=== PATIENT | female | born 1970 | race Caucasian/White ===

== ENCOUNTER 2017-11-22 11:23 | Observation (INO) ==
[2017-11-22] MEDS ORDERED: Ipratropium/Albuterol Neb 3 ML IH ONE ×2 (11:59→12:02)
--- NOTE | 2017-11-22 11:59 | Emergency Department Note ---
Disposition Clinical Impression: Community acquired pneumonia Disposition: Admitted As Inpatient Condition: Fair Time of Disposition: 15:38 General Adult HPI - General Chief complaint: ED Shortness of Breath/Dyspnea Stated complaint: flu symptoms, difficult breathing Time Seen by Provider: 11/22/17 11:50 Source: patient, EMS Limitations: no limitations Nursing Notes Reviewed: Yes Vital Signs Reviewed: Yes - History of Present Illness HPI Narrative: Since last week Ms. Christensen has had muscle aches headache ear pain sore throat productive cough and progressive shortness of breath. No history of asthma. She does not smoke. She called the squad today because of the above symptoms received a DuoNeb en route and reports feeling somewhat better. Fever 102 yesterday. She tried some ibuprofen yesterday but it "did not work well. Sudden onset one week ago. Dizzy lightheaded very fatigued. She is not sure of the last time she urinated because she feels too weak to eat. No nausea vomiting or diarrhea. No rashes. On direct questioning no vision changes but her eyes do hurt to move back and forth in her head. She does have some chest pain on the right side but only on deep inspiration and when coughing. Onset (ago): week(s) Pain Scale: 9 - Related Data Home Medications Medication Instructions Recorded Confirmed Gabapentin [Neurontin] 800 mg PO QID 06/13/15 06/22/16 FLUoxetine HCl [Prozac] 40 mg PO DAILY 12/12/15 06/22/16 Allergies Allergy/AdvReac Type Severity Reaction Status Date / Time influenza virus vaccine ts Allergy Hives Verified 12/12/15 23:17 [id number] (36 mos up) [From Fluarix [id number] (PF)] acetaminophen [From Percocet] AdvReac Nausea Verified 12/12/15 23:17 Cyclobenzaprine AdvReac Rash Verified 12/12/15 23:17 [From Flexeril] Oxycodone [From Percocet] AdvReac Nausea Verified 12/12/15 23:17 Constitutional: Reports: fever, chills Eyes: Reports: eye pain ENT ED: Reports: ear pain, congestion Cardiovascular: Reports: chest pain, dyspnea on exertion Respiratory: Reports: cough, dyspnea, sputum production Gastrointestinal: Denies: nausea, vomiting, diarrhea Musculoskeletal: Reports: myalgia Integumentary: Denies: rash Neurological: Reports: headache Endocrine: Reports: fatigue Past Medical History - Past Medical History Medical history: Reports: arthritis, migraine, other Surgical history: Reports: cholecystectomy, other (Tympanoplasty, vocal cord surgery, lumbar laminectomy in 2014) Psychiatric history: Reports: anxiety, depression, panic disorder, PTSD 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 Absent: scleral icterus, conjunctival injection - ENT ENT exam: normal oropharynx, mucous membranes dry, TM's normal bilaterally, normal external ear exam - Neck Neck exam: Present: normal inspection, full ROM. Absent: meningismus (Negative Kernig and negative Brudzinski's signs) - Chest Chest inspection: Present: normal inspection, symmetric chest wall rise, tenderness (Positive reproducible pain to palpation right side of chest) - Respiratory Respiratory exam: Present: wheezes (Bilateral symmetric end expiratory wheezes with fair air exchange.) - Cardiovascular Cardiovascular exam: Present: normal rhythm, tachycardia, normal heart sounds. Absent: systolic murmur, diastolic murmur - Abdominal Exam Abdominal exam: Present: soft, Non-Tender - Extremities Exam Extremities exam: Present: normal inspection. Absent: pedal edema, calf tenderness (No calf Cord erythema or swelling) - Neurological Exam Neurological exam: Present: alert - Psychiatric Psychiatric exam: Present: normal affect, normal mood - Skin Skin exam: Present: warm, dry. Absent: rash Course Vital Signs Temperature 100.8 F H 11/22/17 11:40 Pulse Rate 133 11/22/17 11:40 Respiratory Rate 20 11/22/17 11:40 Blood Pressure 136/81 11/22/17 11:40 O2 Sat by Pulse Oximetry 98 11/22/17 11:40 Temperature 97.6 F 11/22/17 16:39 Pulse Rate 109 11/22/17 16:39 Respiratory Rate 18 11/22/17 16:39 Blood Pressure 116/84 11/22/17 16:39 O2 Sat by Pulse Oximetry 96 11/22/17 16:39 Oxygen Delivery Oxygen Delivery Nasal Cannula Medical Decision Making - MDM Narrative Medical decision making narrative: Shortness of breath. Clinically sounds like influenza however rapid testing negative. She does have some clinical findings for right-sided community- acquired pneumonia. She was given IV Zithromax and Rocephin here in the emergency department. After additional DuoNeb treatments were given she reported subjective relief. She has never frankly hypoxic but did have subjective shortness of breath with O2 sats on room air 90-93%. She was given 2 L of oxygen for this. She did require 2 L of IV fluid before she produced a urine. Her tachycardia did improve from the 130s down to 109 at the time of her second EKG which showed some resolution of the initial ST depressions which is probably from some demand ischemia secondary to tachycardia. She has no chest pain consistent with a cardiac etiology. It would be prudent to admit her here to the hospital for continued nebulized treatments and IV hydration. I spoke with the covering hospitalist and presented the case. He accepted admission. She was transferred to the floor in improved condition. - Lab Data Lab results reviewed: Yes I reviewed the patient's lab results. Result diagrams: 11/22/17 12:40 11/22/17 12:40 Lab Results 11/22/17 11/22/17 11/22/17 Range/Units 12:40 12:40 12:40 WBC 22.7 H (4.3-11.1) K/mcL RBC 4.83 (3.82-4.97) M/mcL Hgb 14.1 (11.5-15.4) g/dL Hct 41.5 (35.3-44.9) % MCV 85.9 (83.0-100.0) fL MCH 29.2 (28.0-33.3) pg MCHC 34.0 (31.6-35.5) g/dL RDW 13.0 (11.5-14.5) % Plt Count 332 (140-400) K/mcL MPV 9.8 (9.4-12.4) fL Immature Gran % 0.8 (0-4) % Seg Neutrophils % 91.8 % Lymphocytes % 3.6 % Monocytes % 3.6 % Eosinophils % 0.0 % Basophils % 0.2 % Neutrophils # 20.8 H (1.6-8.9) K/mcL Lymphocytes # 0.8 (0.6-4.6) K/mcL Monocytes # 0.8 (0.0-1.3) K/mcL Eosinophils # 0.0 (0.0-0.6) K/mcL Basophils # 0.1 (0.0-0.2) K/mcL Sodium 134 L (136-145) mEq/L Potassium 3.3 L (3.5-5.1) mEq/L Chloride 104 (98-107) mEq/L Carbon Dioxide 21 L (23-29) mEq/L BUN 13 (6-20) mg/dL Creatinine 0.62 (0.60-1.20) mg/dL Est GFR ( Amer) > 60 (> 60) Est GFR (Non-Af Amer) > 60 (> 60) BUN/Creatinine Ratio 21 (6-26) Glucose 143 H (70-105) mg/dL Calculated Osmolality 281 (280-300) Lactic Acid 1.2 (0.5-2.2) mmol/L Calcium 8.6 (8.6-10.3) mg/dL Magnesium (1.6-2.6) mg/dL Total Bilirubin 0.6 (0.3-1.0) mg/dL AST 22 (13-39) Units/L ALT 32 (7-52) Units/L Alkaline Phosphatase 185 H (34-104) Units/L Troponin I (< 0.04) ng/mL B-Natriuretic Peptide (Less than 100) pg/mL Serum Total Protein 6.9 (6.4-8.9) g/dL Albumin 3.9 (3.5-5.7) g/dL Globulin 3.0 (2.4-3.5) g/dL Albumin/Globulin Ratio 1.3 (1.1-2.2) Urine Color (Yellow) Urine Clarity (Clear) Urine pH (5.0-8.0) pH Units Ur Specific [place] (1.010-1.025) Urine Protein (Neg-Trace) mg/dL Urine Glucose (UA) (Normal) mg/dL Urine Ketones (Negative) mg/dL Urine Blood (Negative) Urine Nitrite (Negative) Urine Bilirubin (Negative) Urine Urobilinogen (Normal) mg/dL Ur Leukocyte Esterase (Negative) Urine Microscopic RBC (0-3) per hpf Urine Microscopic WBC (0-3) per hpf Ur Squamous Epith Cells (None-Few) per lpf Ur Transition Epith Cell (None-Few) per hpf Urine Bacteria (None-Few) per hpf Ur Culture Indicated? (NO) Urine Test (Negative) 11/22/17 11/22/17 11/22/17 Range/Units 12:40 12:40 12:40 WBC (4.3-11.1) K/mcL RBC (3.82-4.97) M/mcL Hgb (11.5-15.4) g/dL Hct (35.3-44.9) % MCV (83.0-100.0) fL MCH (28.0-33.3) pg MCHC (31.6-35.5) g/dL RDW (11.5-14.5) % Plt Count (140-400) K/mcL MPV (9.4-12.4) fL Immature Gran % (0-4) % Seg Neutrophils % % Lymphocytes % % Monocytes % % Eosinophils % % Basophils % % Neutrophils # (1.6-8.9) K/mcL Lymphocytes # (0.6-4.6) K/mcL Monocytes # (0.0-1.3) K/mcL Eosinophils # (0.0-0.6) K/mcL Basophils # (0.0-0.2) K/mcL Sodium (136-145) mEq/L Potassium (3.5-5.1) mEq/L Chloride (98-107) mEq/L Carbon Dioxide (23-29) mEq/L BUN (6-20) mg/dL Creatinine (0.60-1.20) mg/dL Est GFR ( Amer) (> 60) Est GFR (Non-Af Amer) (> 60) BUN/Creatinine Ratio (6-26) Glucose (70-105) mg/dL Calculated Osmolality (280-300) Lactic Acid (0.5-2.2) mmol/L Calcium (8.6-10.3) mg/dL Magnesium 1.7 (1.6-2.6) mg/dL Total Bilirubin (0.3-1.0) mg/dL AST (13-39) Units/L ALT (7-52) Units/L Alkaline Phosphatase (34-104) Units/L Troponin I < 0.03 (< 0.04) ng/mL B-Natriuretic Peptide 65 (Less than 100) pg/mL Serum Total Protein (6.4-8.9) g/dL Albumin (3.5-5.7) g/dL Globulin (2.4-3.5) g/dL Albumin/Globulin Ratio (1.1-2.2) Urine Color (Yellow) Urine Clarity (Clear) Urine pH (5.0-8.0) pH Units Ur Specific [place] (1.010-1.025) Urine Protein (Neg-Trace) mg/dL Urine Glucose (UA) (Normal) mg/dL Urine Ketones (Negative) mg/dL Urine Blood (Negative) Urine Nitrite (Negative) Urine Bilirubin (Negative) Urine Urobilinogen (Normal) mg/dL Ur Leukocyte Esterase (Negative) Urine Microscopic RBC (0-3) per hpf Urine Microscopic WBC (0-3) per hpf Ur Squamous Epith Cells (None-Few) per lpf Ur Transition Epith Cell (None-Few) per hpf Urine Bacteria (None-Few) per hpf Ur Culture Indicated? (NO) Urine Test (Negative) 11/22/17 11/22/17 Range/Units 14:57 14:57 WBC (4.3-11.1) K/mcL RBC (3.82-4.97) M/mcL Hgb (11.5-15.4) g/dL Hct (35.3-44.9) % MCV (83.0-100.0) fL MCH (28.0-33.3) pg MCHC (31.6-35.5) g/dL RDW (11.5-14.5) % Plt Count (140-400) K/mcL MPV (9.4-12.4) fL Immature Gran % (0-4) % Seg Neutrophils % % Lymphocytes % % Monocytes % % Eosinophils % % Basophils % % Neutrophils # (1.6-8.9) K/mcL Lymphocytes # (0.6-4.6) K/mcL Monocytes # (0.0-1.3) K/mcL Eosinophils # (0.0-0.6) K/mcL Basophils # (0.0-0.2) K/mcL Sodium (136-145) mEq/L Potassium (3.5-5.1) mEq/L Chloride (98-107) mEq/L Carbon Dioxide (23-29) mEq/L BUN (6-20) mg/dL Creatinine (0.60-1.20) mg/dL Est GFR ( Amer) (> 60) Est GFR (Non-Af Amer) (> 60) BUN/Creatinine Ratio (6-26) Glucose (70-105) mg/dL Calculated Osmolality (280-300) Lactic Acid (0.5-2.2) mmol/L Calcium (8.6-10.3) mg/dL Magnesium (1.6-2.6) mg/dL Total Bilirubin (0.3-1.0) mg/dL AST (13-39) Units/L ALT (7-52) Units/L Alkaline Phosphatase (34-104) Units/L Troponin I (< 0.04) ng/mL B-Natriuretic Peptide (Less than 100) pg/mL Serum Total Protein (6.4-8.9) g/dL Albumin (3.5-5.7) g/dL Globulin (2.4-3.5) g/dL Albumin/Globulin Ratio (1.1-2.2) Urine Color Yellow (Yellow) Urine Clarity Clear (Clear) Urine pH 5.5 (5.0-8.0) pH Units Ur Specific [place] <= 1.005 L (1.010-1.025) Urine Protein Negative (Neg-Trace) mg/dL Urine Glucose (UA) Normal (Normal) mg/dL Urine Ketones 40 H (Negative) mg/dL Urine Blood Small H (Negative) Urine Nitrite Negative (Negative) Urine Bilirubin Negative (Negative) Urine Urobilinogen Normal (Normal) mg/dL Ur Leukocyte Esterase Negative (Negative) Urine Microscopic RBC 0-3 (0-3) per hpf Urine Microscopic WBC 0-3 (0-3) per hpf Ur Squamous Epith Cells Many H (None-Few) per lpf Ur Transition Epith Cell Few (None-Few) per hpf Urine Bacteria Many H (None-Few) per hpf Ur Culture Indicated? NO (NO) Urine Test Negative (Negative) - Radiology Data Radiology results reviewed: Yes I reviewed the patient's radiology results. - EKG Data EKG #1 EKG attestation: Yes I reviewed and interpreted this EKG. EKG results narrative: EKG as interpreted by me sinus tachycardia [address] depressions 1 box lead 1 and 23 aVF and V3 V4 and V5 V6. Incomplete right bundle branch block. Q waves in lead 3. No evidence of hypertrophy. No ST elevations. No T-wave abnormalities. QT 410 ms. October 2015 QT was [address] depressions were present but not quite as deep as today. Other ST depressions are not present on the 2016 study. EKG #2 done at 3: 18 PM. Rate has decreased to 109 beats per minutes. There is still some evidence of very mild ST depressions but they appear to be resolving.
[2017-11-22] MEDS ORDERED: 0.9 % Sodium Chloride 1,000 ML IVC ONE ×2 (12:00→13:54)
[2017-11-22] MEDS ORDERED: Acetaminophen 325 MG TABLET PO ONE (12:07)
[2017-11-22 12:57] LABS: Basophils # 0.1 K/mcL (0.0-0.2); Basophils % 0.2 %; Hematocrit 41.5 % (35.3-44.9); Hemoglobin 14.1 g/dL (11.5-15.4); Immature Granulocytes % 0.8 % (0-4); Lymphocytes # 0.8 K/mcL (0.6-4.6); Lymphocytes % 3.6 %; Mean Corpuscular Hemoglobin 29.2 pg (28.0-33.3); Mean Corpuscular Volume 85.9 fL (83.0-100.0); Mean Platelet Volume 9.8 fL (9.4-12.4); Monocytes # 0.8 K/mcL (0.0-1.3); Monocytes % 3.6 %; Neutrophils # 20.8 K/mcL (1.6-8.9); Platelet Count 332 K/mcL (140-400); Red Blood Count 4.83 M/mcL (3.82-4.97); Segmented Neutrophils % 91.8 %
[2017-11-22 13:13] LABS: Alanine Aminotransferase 32 Units/L (7-52); Albumin 3.9 g/dL (3.5-5.7); Albumin/Globulin Ratio 1.3 (1.1-2.2); Alkaline Phosphatase 185 Units/L (34-104); Aspartate Amino Transferase 22 Units/L (13-39); BUN/Creatinine Ratio 21 (6-26); Bilirubin,Total 0.6 mg/dL (0.3-1.0); Blood Urea Nitrogen 13 mg/dL (6-20); Calcium 8.6 mg/dL (8.6-10.3); Carbon Dioxide 21 mEq/L (23-29); Chloride 104 mEq/L (98-107); Glucose 143 mg/dL (70-105); Osmolality,Calculated 281 (280-300); Potassium 3.3 mEq/L (3.5-5.1); Sodium 134 mEq/L (136-145); Total Protein 6.9 g/dL (6.4-8.9); eGFR For African Americans > 60 (> 60); eGFR For Non-African Americans > 60 (> 60)
[2017-11-22] MEDS ORDERED: Azithromycin 500 MG in D5% in Water 250 ML IVPB ONE (13:18)
[2017-11-22 15:15] LABS: Bilirubin,Urine Negative (Negative); Blood,Urine Small (Negative); Clarity,Urine Clear (Clear); Color,Urine Yellow (Yellow); Glucose,Urine (UA) Normal (Normal); Ketones,Urine 40 mg/dL (Negative); Leukocyte Esterase,Urine Negative (Negative); Nitrite,Urine Negative (Negative); PH,Urine 5.5 pH Units (5.0-8.0); Protein,Urine Negative (Neg-Trace); Specific Gravity,Urine <= 1.005 (1.010-1.025); Urobilinogen,Urine Normal (Normal)
[2017-11-22 15:23] LABS: Bacteria,Urine Many per hpf (None-Few); RBC,Urine 0-3 per hpf (0-3); Squamous Epithelial Cell,Urine Many per lpf (None-Few); WBC,Urine 0-3 per hpf (0-3)
[2017-11-22 15:24] LABS: Transitional Epi Cells,Urine Few per hpf (None-Few)
[2017-11-22] MEDS ORDERED: Naloxone 0.4 MG/ML INJ IVP PRN (16:38)
[2017-11-22] MEDS ORDERED: Albuterol 2.5 MG/3 ML NEBULIZER IH PRN (16:38)
[2017-11-22] MEDS ORDERED: Dextrose Gel 15 GM PO PRN ×2 (17:01)
[2017-11-22] MEDS ORDERED: *HR* Dextrose 50 % in Water (Syg) 50 ML SYRINGE IVP PRN (17:01)
[2017-11-22] MEDS ORDERED: D5% in Water 1,000 ML IVC PRN (17:01)
[2017-11-22 17:15] LABS: INR 1.3; Prothrombin Time 14.6 Seconds (9.4-12.1)
[2017-11-22] MEDS: 0.9 % Sodium Chloride 1,000 ML IVC SCH (18:28)
[2017-11-22] MEDS: MethylPREDNISolone 40 MG/ML VIAL IVP SCH (18:28)
[2017-11-22] MEDS: Acetaminophen 325 MG TABLET PO PRN (18:29)
[2017-11-22] MEDS: Azithromycin 250 MG in D5% in Water 250 ML IVPB SCH (18:43)
[2017-11-22] MEDS: Insulin LISPRO 300 UNITS/3 ML VIAL SQ SCH (21:42)
[2017-11-22] MEDS: DEXTROAMPHETAMINE PO SCH (21:43)
[2017-11-22] MEDS: AMPHETAMINE PO SCH (21:43)
[2017-11-22] MEDS: Gabapentin 400 MG CAPSULE PO SCH (22:27)
[2017-11-23] MEDS: MethylPREDNISolone 40 MG/ML VIAL IVP SCH ×5 (00:05→23:17)
[2017-11-23] MEDS: Ibuprofen 600 MG TABLET PO PRN ×3 (00:16→17:26)
[2017-11-23] MEDS: 0.9 % Sodium Chloride 1,000 ML IVC SCH (03:30)
[2017-11-23] MEDS: *HR* Enoxaparin 40 MG/0.4 ML SYRINGE SQ SCH (05:06)
[2017-11-23] MEDS: Acetaminophen 325 MG TABLET PO PRN ×3 (05:11→23:17)
[2017-11-23 06:08] LABS: Basophils % 0.1 %; Hematocrit 37.1 % (35.3-44.9); Immature Granulocytes % 0.8 % (0-4); Lymphocytes # 1.4 K/mcL (0.6-4.6); Lymphocytes % 5.9 %; Mean Corpuscular Hemoglobin 29.5 pg (28.0-33.3); Mean Corpuscular Volume 86.9 fL (83.0-100.0); Mean Platelet Volume 9.8 fL (9.4-12.4); Monocytes # 0.6 K/mcL (0.0-1.3); Monocytes % 2.5 %; Neutrophils # 21.6 K/mcL (1.6-8.9); Platelet Count 311 K/mcL (140-400); Red Blood Count 4.27 M/mcL (3.82-4.97); Red Cell Distribution Width 13.3 % (11.5-14.5); Segmented Neutrophils % 90.7 %
[2017-11-23 06:28] LABS: Hemoglobin 12.6 g/dL (11.5-15.4)
[2017-11-23 06:30] LABS: Anisocytosis 1+ (Not Present)
[2017-11-23 06:59] LABS: BUN/Creatinine Ratio 21 (6-26); Blood Urea Nitrogen 12 mg/dL (6-20); Calcium 8.8 mg/dL (8.6-10.3); Carbon Dioxide 26 mEq/L (23-29); Chloride 110 mEq/L (98-107); Glucose 150 mg/dL (70-105); Osmolality,Calculated 293 (280-300); Potassium 4.2 mEq/L (3.5-5.1); Sodium 140 mEq/L (136-145); eGFR For African Americans > 60 (> 60); eGFR For Non-African Americans > 60 (> 60)
[2017-11-23] MEDS: Insulin LISPRO 300 UNITS/3 ML VIAL SQ SCH ×4 (08:54→23:16)
[2017-11-23] MEDS: Gabapentin 400 MG CAPSULE PO SCH ×4 (08:59→23:16)
[2017-11-23] MEDS: cefTRIAXone 1,000 MG in Water for inj. (sterile) 20 ML 10 ML IVP SCH (08:59)
[2017-11-23] MEDS ORDERED: FLUoxetine 20 MG CAPSULE PO SCH (09:00)
[2017-11-23] MEDS ORDERED: Lurasidone 20 MG TABLET PO SCH (09:00)
[2017-11-23] MEDS: AMPHETAMINE PO SCH ×2 (09:01→23:16)
[2017-11-23] MEDS: DEXTROAMPHETAMINE PO SCH ×2 (09:01→23:16)
[2017-11-23] MEDS: Ipratropium/Albuterol Neb 3 ML IH PRN ×2 (13:04→23:17)
--- NOTE | 2017-11-23 14:15 | Internal Med History&Physical ---
Date of Encounter: 11/23/17 Time of Encounter: 14:11 Assessment and Plan (1) Community acquired pneumonia Current visit: Yes Status: Acute Continue IV antibiotics, nebulizer treatments, will try to wean oxygen. Will repeat CBC tomorrow and chest x-ray tomorrow Qualifiers: Laterality: right Lung location: lower lobe of lung Qualified Code(s): J18.1 - Lobar pneumonia, unspecified organism Internal Medicine - H&P: HPI Admitted From: Emergency Dept Plans for Post Hospital Care: Home History of present illness: Ms. Lowry is a 47 year old female presents to unit from ED after SOB. states has not felt well for the past 2 weeks, with body aches, fever, chills, headache and ear pain. Other family members in the same household ill was similar symptoms. Patient is a non-smoker. Has had increased shortness of breath today while ambulating to the bathroom. Has decrease in appetite. Denies fever or chills. Denies nausea, vomiting, diarrhea. Patient is on 1 liter oxygen per nasal cannula with O2 sats around 9%. Try to wean off 02 and went down to 90%. Past medical history includes anxiety, PTSD, depression and migraines. Past Med Surg Social Fam HX - Past Medical History Medical history: arthritis, migraine, other Psychiatric history: anxiety, depression, panic disorder, PTSD - Past Surgical History Surgical History: , cholecystectomy, other - Social History Smoking Status: 2nd Hand Smoke Exposure Smokeless Tobacco Status: No Alcohol use: none Drug use: none - Family History Father Living Status: Hx Family Cardiac Disorders: Yes Hx Family Cancer: Yes Internal Medicine - H&P: Meds Gabapentin [Neurontin] 800 mg PO QID 06/13/15 [History] FLUoxetine HCl [Prozac] 40 mg PO DAILY 12/12/15 [History] DULoxetine [Cymbalta] 30 mg PO DAILY 11/22/17 [History] Dextroamphetamine/Amphetamine [Adderall 20 mg Tablet] 20 mg PO BID 11/22/17 [ History] Duloxetine HCl [Cymbalta] 60 mg PO HS 11/22/17 [History] 3 Allergy/AdvReac Type Severity Reaction Status Date / Time influenza virus vaccine ts Allergy Hives Verified 12/12/15 23:17 [id number] (36 mos up) [From Fluarix [id number] (PF)] acetaminophen [From Percocet] AdvReac Nausea Verified 12/12/15 23:17 Cyclobenzaprine AdvReac Rash Verified 12/12/15 23:17 [From Flexeril] Oxycodone [From Percocet] AdvReac Nausea Verified 12/12/15 23:17 All Systems PM: A 10-system review of systems was performed and is negative for pertinent findings except as documented above in the HPI. - Constitutional Constitutional: no chills, no fever(s), no night sweats - EENT Eyes: no change in vision, no discharge, no pain, no photophobia Ears: no ear discharge, no ear pain, no tinnitus Nose, mouth and throat: no dysphagia, no nasal discharge, no neck pain, no sore throat - Cardiovascular Cardiovascular ROS IM: no chest pain, no diaphoresis, no dyspnea, no lightheadedness, no palpitations, no syncope - Respiratory Respiratory: cough, no dyspnea, no wheezing, no excessive phlegm production Additional comments: Coughed nonproductive. Complains of shortness of breath with exertion. - Gastrointestinal Gastrointestinal: no abdominal pain, no diarrhea, no hematemesis, no hematochezia, no melena, no nausea, no vomiting - Genitourinary Genitourinary: no change in urinary stream, no dysuria, no flank pain, no hematuria - Musculoskeletal Musculoskeletal ROS IM: no numbness, no tingling - Integumentary Integumentary IM: no rash, no unusual bruising - Neurological Neurological ROS: no confusion, no convulsions, no focal weakness, no numbness, no tingling, no tremor(s) - Hematologic/Lymphatic Hematologic/Lymphatic: no easy bruising - Constitutional Vitals: Temp Pulse Resp BP Pulse Ox 98.4 F 95 18 126/74 94 11/23/17 11:00 11/23/17 11:00 11/23/17 11:00 11/23/17 11:00 11/23/17 11:00 General appearance: Present: A&O X 3, pleasant, no acute distress, obese, answers questions appropriately - Head Head exam: Present: atraumatic, normocephalic - Eye Eye exam: Present: PERRL, conjuntiva pink, sclera anicteric Pupils: Present: PERRL - Neck Neck exam general surgery: Present: supple, trachea midline. Absent: lymphadenopathy - Respiratory Respiratory exam: Absent: accessory muscle use, rales, rhonchi, wheezes Additional comments: Fine crackles present in right upper and lower lobe - Cardiovascular Cardiovascular exam: Present: RRR, +S1, +S2. Absent: diastolic murmur, gallop, rubs, systolic murmur - GI/Abdominal GI/Abdominal exam: Present: normal bowel sounds, soft, no peritoneal signs. Absent: distended, tenderness - Extremities Exam Extremities exam: Present: warm, radial pulses palpable and symmetrical. Absent : calf tenderness, cyanotic, pedal edema - Neurological Exam Neurological exam: Present: CN II-XII intact, oriented X3, no focal deficits. Absent: pronater drift, facial droop, speech deficit - Skin Skin exam: Present: dry, intact Internal Med - H&P Results - Labs CBC & Chem 7: 11/23/17 05:50 11/23/17 05:50 Labs: Short CBC 11/23/17 Range/Units 05:50 WBC 23.8 H (4.3-11.1) K/mcL Hgb 12.6 D (11.5-15.4) g/dL Hct 37.1 (35.3-44.9) % Plt Count 311 (140-400) K/mcL Neutrophils # 21.6 H (1.6-8.9) K/mcL BMP 11/23/17 05:50 Sodium 140 Potassium 4.2 D Chloride 110 H Carbon Dioxide 26 BUN 12 Creatinine 0.57 L Glucose 150 H Calcium 8.8
--- NOTE | 2017-11-23 16:34 | Electrocardiograph Report ---
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
--- NOTE | 2017-11-23 16:41 | Electrocardiograph Report ---
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
--- NOTE | 2017-11-23 16:49 | Electrocardiograph Report ---
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
[2017-11-23] MEDS ORDERED: Azithromycin 250 MG in D5% in Water 250 ML IVPB SCH (17:15)
[2017-11-23] MEDS: Azithromycin 250 MG in D5% in Water 250 ML IVPB SCH (17:33)
[2017-11-24] MEDS: *HR* Enoxaparin 40 MG/0.4 ML SYRINGE SQ SCH (04:30)
[2017-11-24] MEDS: Ibuprofen 600 MG TABLET PO PRN (04:30)
[2017-11-24] MEDS: MethylPREDNISolone 40 MG/ML VIAL IVP SCH ×2 (04:30→12:02)
[2017-11-24 05:48] LABS: Basophils % 0.1 %; Hematocrit 35.8 % (35.3-44.9); Hemoglobin 11.9 g/dL (11.5-15.4); Immature Granulocytes % 2.3 % (0-4); Lymphocytes % 6.7 %; Mean Corpuscular HGB Conc 33.2 g/dL (31.6-35.5); Mean Corpuscular Hemoglobin 28.9 pg (28.0-33.3); Mean Corpuscular Volume 86.9 fL (83.0-100.0); Mean Platelet Volume 9.9 fL (9.4-12.4); Monocytes # 0.5 K/mcL (0.0-1.3); Monocytes % 2.3 %; Neutrophils # 17.7 K/mcL (1.6-8.9); Platelet Count 331 K/mcL (140-400); Red Blood Count 4.12 M/mcL (3.82-4.97); Red Cell Distribution Width 13.4 % (11.5-14.5); Segmented Neutrophils % 88.6 %
[2017-11-24 05:53] LABS: Lymphocytes # 1.3 K/mcL (0.6-4.6)
[2017-11-24] MEDS: Insulin LISPRO 300 UNITS/3 ML VIAL SQ SCH (08:11)
[2017-11-24] MEDS: cefTRIAXone 1,000 MG in Water for inj. (sterile) 20 ML 10 ML IVP SCH (11:59)
[2017-11-24] MEDS: Gabapentin 400 MG CAPSULE PO SCH (12:01)
[2017-11-24] MEDS: Acetaminophen 325 MG TABLET PO PRN (12:01)
[2017-11-24] MEDS: DEXTROAMPHETAMINE PO SCH (12:02)
[2017-11-24] MEDS: AMPHETAMINE PO SCH (12:02)
--- NOTE | 2017-11-24 12:50 | Discharge Summary ---
Date of Encounter: 11/24/17 Time of Encounter: 12:45 Hospital course: Ms. Lowry is a 47 year old female - Time Spent with Patient Total time spent providing and/or coordinating discharge services: - Discharge Medications Home Medications: Gabapentin [Neurontin] 800 mg PO QID 06/13/15 [History] FLUoxetine HCl [Prozac] 40 mg PO DAILY 12/12/15 [History] DULoxetine [Cymbalta] 30 mg PO DAILY 11/22/17 [History] Dextroamphetamine/Amphetamine [Adderall 20 mg Tablet] 20 mg PO BID 11/22/17 [ History] Duloxetine HCl [Cymbalta] 60 mg PO HS 11/22/17 [History] Allergies/Adverse Reactions: 3 Allergy/AdvReac Type Severity Reaction Status Date / Time influenza virus vaccine ts Allergy Hives Verified 12/12/15 23:17 [id number] (36 mos up) [From Fluarix [id number] (PF)] acetaminophen [From Percocet] AdvReac Nausea Verified 12/12/15 23:17 Cyclobenzaprine AdvReac Rash Verified 12/12/15 23:17 [From Flexeril] Oxycodone [From Percocet] AdvReac Nausea Verified 12/12/15 23:17 Date of admission: 11/22/17 15:54 Primary care physician: Gerardo Glass, - Constitutional Vitals: Temp Pulse Resp BP Pulse Ox 97.7 F 83 16 133/85 96 11/24/17 07:44 11/24/17 07:44 11/24/17 07:44 11/24/17 07:44 11/24/17 07:44 General appearance: Present: A&O X 3, pleasant, no acute distress, obese, answers questions appropriately - Patient Status Condition: Fair - Discharge Instructions Follow Up With: Gerardo Glass MD [Primary Care Provider] -
--- NOTE | 2017-11-24 12:56 | Discharge Summary ---
- NOTES TO OUTPATIENT PROVIDER Notes to Outpatient Provider: Will need follow-up of CBC for leukocytosis appears to be stressrelated or steroid burst. Orders not resulted at time of discharge: Not applicable. . Date of Encounter: 11/24/17 Time of Encounter: 12:30 - Discharge Diagnosis (1) Community acquired pneumonia Priority: Primary Status: Acute Qualifiers: Laterality: right Lung location: lower lobe of lung Qualified Code(s): J18.1 - Lobar pneumonia, unspecified organism Hospital course: Ms. Lowry is a 47 year old female who was admitted with progressive malaise and illness for about 2 weeks but became acutely short of breath on the day of admission. She presented to [facility] emergency department and was found to have right lower lobe pneumonia. She was begun on azithromycin and treated with nebulized aerosolized. She improved overnight and was not well enough to go on the second hospital day she is feeling much better, able off oxygen, still having some cough in wheezing but much improved and able to do activities of daily living. She was thus discharged to home with early follow- up with her primary care physician. She will be placed on a prednisone burst of 40 mg daily for 5 days and an 8day course to complete a total of 10 with oral azithromycin. Discharge discussed with: patient Time spent discussing smoking cessation with patient: 3 to 10 minutes - Time Spent with Patient Total time spent providing and/or coordinating discharge services: Less than 30 minutes - Discharge Medications Home Medications: Gabapentin [Neurontin] 800 mg PO QID 06/13/15 [History] FLUoxetine HCl [Prozac] 40 mg PO DAILY 12/12/15 [History] DULoxetine [Cymbalta] 30 mg PO DAILY 11/22/17 [History] Dextroamphetamine/Amphetamine [Adderall 20 mg Tablet] 20 mg PO BID 11/22/17 [ History] Duloxetine HCl [Cymbalta] 60 mg PO HS 11/22/17 [History] Allergies/Adverse Reactions: 3 Allergy/AdvReac Type Severity Reaction Status Date / Time influenza virus vaccine ts Allergy Hives Verified 12/12/15 23:17 [id number] (36 mos up) [From Fluarix [id number] (PF)] acetaminophen [From Percocet] AdvReac Nausea Verified 12/12/15 23:17 Cyclobenzaprine AdvReac Rash Verified 12/12/15 23:17 [From Flexeril] Oxycodone [From Percocet] AdvReac Nausea Verified 12/12/15 23:17 Date of admission: 11/22/17 15:54 Primary care physician: Gerardo Glass, - Constitutional Vitals: Temp Pulse Resp BP Pulse Ox 97.7 F 83 16 133/85 96 11/24/17 07:44 11/24/17 07:44 11/24/17 07:44 11/24/17 07:44 11/24/17 07:44 General appearance: Present: A&O X 3, pleasant, no acute distress, obese, answers questions appropriately - Head Head exam: Present: atraumatic, normal inspection, normocephalic - Respiratory Respiratory exam: Present: rhonchi, wheezes. Absent: accessory muscle use Additional comments: She continues to have diffuse wheezes, mostly inexpiratory, and no localizing findings. Airflow is good and she is comfortable without signs of distress or diaphoresis, on room air. - Cardiovascular Cardiovascular exam: Present: RRR. Absent: systolic murmur - GI/Abdominal GI/Abdominal exam: Present: normal bowel sounds, soft. Absent: hepatomegaly, splenomegaly, tenderness - Extremities Exam Extremities exam: Present: normal capillary refill, warm. Absent: calf tenderness, cyanotic - Skin Skin exam: Present: dry, warm. Absent: rash - Patient Status Disposition: Home, Self-Care Condition: Fair Functional capacity at discharge: independent ambulation Overall status at discharge: patient is not back to baseline - Discharge Instructions Follow Up With: Gerardo Glass MD [Primary Care Provider] - - Diet and Activity Activity: increase activity as tolerated Diet: advance to your usual diet
[2017-11-24 14:42] VITALS: BP 125/81
[2017-11-25] MEDS ORDERED: Azithromycin 250 MG TABLET PO SCH (09:00)
[2017-11-25] MEDS ORDERED: predniSONE 20 MG TABLET PO SCH (09:00)
== END 2017-11-24 16:40 | disposition home or self-care (01) ==
LOC: INPGRE 11:23 → EMEROOGRE 11:23 → INPGRE 16:20